=== PATIENT | male | born 1970 | race Caucasian/White ===

== ENCOUNTER 2018-05-03 09:37 | Outpatient (CLI) | payer BC | END 2018-05-03 09:38 | disposition home or self-care (01) | LOC: BICRAD 09:37 | PROVIDERS: ATTEND Family Medicine | DX: S93.401A Sprain of unspecified ligament of right ankle, initial encounter (principal); S92.351A Displaced fracture of fifth metatarsal bone, right foot, initial encounter for closed fracture ==

== ENCOUNTER 2019-06-07 10:20 | Outpatient (CLI) | payer BC | END 2019-06-07 10:21 | disposition home or self-care (01) | LOC: LABBT 10:20 | PROVIDERS: ATTEND Orthopaedic Surgery | DX: Z01.818 Encounter for other preprocedural examination (principal); M77.12 Lateral epicondylitis, left elbow | CPT/HCPCS: 93005; 93010 ==

== ENCOUNTER 2019-06-13 06:31 | Day surgery (SDC) | payer BC ==
[2019-06-07 15:50] VITALS: BMI 27.3
[2019-06-13] MEDS ORDERED: ceFAZolin Sodium (SDC) 2 GM/100 ML BAG ONE (07:19)
[2019-06-13] MEDS ORDERED: Fentanyl 100 MCG/2 ML VIAL ONE (08:24)
[2019-06-13] MEDS ORDERED: Bupivacaine HCl 0.5%/Epinephrine 1:200,000/PF 30 ml Vial ONE (08:54)
[2019-06-13] MEDS ORDERED: Ondansetron PF 4 MG/2 ML Vial ONE (12:09)
[2019-06-13] MEDS ORDERED: PROPOFOL 200 MG/20 ML VIAL ONE (12:09)
[2019-06-13] MEDS ORDERED: Lidocaine 1% PF 5 ML VIAL ONE (12:09)
--- NOTE | 2019-06-13 13:53 | OP ---
DATE OF PROCEDURE: 06/13/2019 PREOPERATIVE DIAGNOSIS: Left lateral epicondylitis. POSTOPERATIVE DIAGNOSIS: Left lateral epicondylitis. PROCEDURE PERFORMED: Left lateral epicondylectomy ANESTHESIA: General. BLOOD LOSS: Minimal. SPECIMENS: None. DRAINS: None. COMPLICATIONS: None. TOURNIQUET TIME: 13 minutes. DESCRIPTION OF PROCEDURE: The patient was taken to the operating room, where general anesthesia was induced. Left arm was prepped and draped in usual sterile fashion. He received Ancef preoperatively. I made an incision in line with the common extensor mechanism. Dissection was carried through subcutaneous tissue. Hemostasis was obtained. I elevated the common extensor origin off the lateral condyle, performed a partial lateral epicondylectomy, debrided the underside of the tendon. Irrigation was performed. Hemostasis was obtained. 2-0 Vicryl. Skin was closed with Prolene, and sterile dressing was applied. Job ID: [id number]
== END 2019-06-13 11:34 | disposition home or self-care (01) ==
LOC: SDC 06:31
PROVIDERS: ATTEND Orthopaedic Surgery
PROC: 0LQ40ZZ Repair Left Upper Arm Tendon, Open Approach (ICD-10-PCS; principal; 2019-06-13)
PROC: 0PBG0ZZ Excision of Left Humeral Shaft, Open Approach (ICD-10-PCS; principal; 2019-06-13)
DX: M77.12 Lateral epicondylitis, left elbow (principal); I10 Essential (primary) hypertension; F32.9 Major depressive disorder, single episode, unspecified; E78.00 Pure hypercholesterolemia, unspecified; Z79.899 Other long term (current) drug therapy
CPT/HCPCS: J0670; J0690; J3010

== ENCOUNTER 2019-12-18 08:58 | Outpatient (CLI) | payer BC ==
--- NOTE | 2019-12-18 09:17 | RAD ---
XR Hip Lt 2-3 View INDICATION: Osteoarthritis COMPARISON: None FINDINGS: Bones: No acute osseous abnormality. Bone mineralization appears within normal limits. Hip joint: Radiographically normal. SI joints and symphysis pubis: Radiographically normal. Intrapelvic contents: Visualized bowel gas pattern is within normal limits. Surrounding soft tissues: Radiographically normal. IMPRESSION: 1. No acute osseous abnormality.
== END 2019-12-18 08:59 | disposition home or self-care (01) ==
LOC: BICRAD 08:58
PROVIDERS: ATTEND Family Medicine
DX: M19.90 Unspecified osteoarthritis, unspecified site (principal)

== ENCOUNTER 2020-01-14 14:10 | Outpatient (CLI) | payer BC ==
--- NOTE | 2020-01-14 14:36 | RAD ---
Lumbar spine 4 views flexion and extension HISTORY: Low back pain. Left leg radiculopathy. FINDINGS: There are 5 lumbar type vertebrae. Pedicles are intact. Vertebral body heights and alignmen t are maintained. Images were obtained weightbearing. No abnormal translational motion upon flexion or extension. Mild osteophytosis throughout the lower vertebral bodies and facets. IMPRESSION: Very mild osseous degenerative changes. No acute osseous abnormalities are demonstrated.
--- NOTE | 2020-01-14 15:52 | MRI ---
MRI lumbar spine noncontrast HISTORY: Low back pain with left leg radiculopathy. FINDINGS: The conus medullaris has normal appearance. Vertebral body heights and alignment are mainta ined. Very mild discogenic endplate changes within the bone marrow at each level. T12-L1, L1-2, L2-3: Central canal and neural foramina are patent. L3-4: Degenerative changes of each facet. Mild disc bulge more pronounced bilaterally and posteriorly . Central canal is patent. There is moderate stenosis of each neural foramen. L4-5: Very mild disc bulge. Prominent hypertrophy of the facets. Thecal sac is patent. Moderate steno sis of each neural foramen. L5-S1: Posterior disc protrusion into the anterior epidural fat without significant compression of th e thecal sac or nerve root. Far left lateral disc bulge and osteophytosis result in moderate stenosis of the left neural foramen. Right neural foramen is patent. IMPRESSION: Mild to moderate degenerative changes throughout the lumbar spine as detailed above, incl uding multilevel moderate left foraminal stenoses. No focal disc herniation or nerve root compression evident.
== END 2020-01-14 14:11 | disposition home or self-care (01) ==
LOC: BICMRI 14:10
PROVIDERS: ATTEND Nurse Practitioner Family
DX: M51.16 Intervertebral disc disorders with radiculopathy, lumbar region (principal); M96.1 Postlaminectomy syndrome, not elsewhere classified; M47.816 Spondylosis without myelopathy or radiculopathy, lumbar region; M48.061 Spinal stenosis, lumbar region without neurogenic claudication; M48.07 Spinal stenosis, lumbosacral region
CPT/HCPCS: 72110; 72148

== ENCOUNTER 2020-04-24 09:21 | Outpatient (CLI) | payer BC ==
--- NOTE | 2020-04-24 09:37 | RAD ---
EXAM: Two views chest PROVIDED CLINICAL HISTORY: Acute bronchitis. Long-standing cough. COMPARISON: None FINDINGS: Cardiac silhouette and pulmonary vasculature are within normal limits. The lungs are clear. The osse ous structures have a normal appearance. IMPRESSION: No acute cardiopulmonary process.
== END 2020-04-24 09:22 | disposition home or self-care (01) ==
LOC: BICRAD 09:21
PROVIDERS: ATTEND Family Medicine
DX: J20.9 Acute bronchitis, unspecified (principal)
CPT/HCPCS: 36415; 71046; 80053; 85025

== ENCOUNTER 2020-06-17 14:24 | Outpatient (CLI) | payer BC ==
[~2020-06-17 14:24] MED LIST: Magnevist 469MG/ML 20 ML VIAL ONE
--- NOTE | 2020-06-17 15:43 | MRI ---
MR the brain with and without contrast INDICATION: History of vascular headache and cough Contrast: 16 cc of MultiHance COMPARISON: None FINDINGS: No area of restricted diffusion is grossly evident to suggest presence of acute ischemia. There is as ymmetric prominence of the left lateral ventricle which can be congenital variant. Remaining right lateral ventricle, third ventricle and fourth ventricle appear within normal limits. Appropriate flow voids are seen within the major intracranial vessels. The septum pellucidum and third ventricle are midline. No definite signal abnormality or region of abnormal enhancement is seen within the brai n parenchyma. There is prominent mucosal thickening within the frontal sinus, ethmoid air cells, sphenoid sinus and maxillary sinuses. There is air-fluid level within the left maxillary sinus. Masto id air cells appear within normal limits. Extracranial soft tissues appear within normal limits. IMPRESSION: 1. No acute intracranial abnormality. 2. Prominent paranasal sinus disease with acute left maxillary sinusitis.
== END 2020-06-17 14:25 | disposition home or self-care (01) ==
LOC: BICMRI 14:24
PROVIDERS: ATTEND Family Medicine
DX: G44.1 Vascular headache, not elsewhere classified (principal); J01.00 Acute maxillary sinusitis, unspecified; J32.4 Chronic pansinusitis
CPT/HCPCS: 70553; A9579

== ENCOUNTER 2020-08-26 08:56 | Outpatient (CLI) | payer BC ==
--- NOTE | 2020-08-26 09:56 | RAD ---
PA AND LATERAL VIEWS CHEST: Date: 08/26/2020 COMPARISON: 07/13/2020. FINDINGS/IMPRESSION: The heart size is normal. The lungs are well expanded without lobar consolidation, pneumothoraces, or pleural effusions. There is a questionable mild infiltrate in the left lower lung. The possibility o f pneumonia cannot be excluded. POS: AH
== END 2020-08-26 08:57 | disposition home or self-care (01) ==
LOC: BICRAD 08:56
PROVIDERS: ATTEND Family Medicine
DX: R05 Cough (principal)
CPT/HCPCS: 36415; 71046; 80053; 85025; 85652; 86140

== ENCOUNTER 2021-07-27 08:47 | Outpatient (CLI) | payer BC | END 2021-07-27 08:48 | disposition home or self-care (01) | LOC: BICRAD 08:47 | PROVIDERS: ATTEND Specialist | DX: M54.2 Cervicalgia (principal); M47.812 Spondylosis without myelopathy or radiculopathy, cervical region | CPT/HCPCS: 72050 ==

== ENCOUNTER 2022-05-31 07:55 | Outpatient (CLI) | payer BC | END 2022-05-31 07:56 | disposition home or self-care (01) | LOC: SCSMRI 07:55 | PROVIDERS: ATTEND Orthopaedic Surgery | DX: M75.21 Bicipital tendinitis, right shoulder (principal); S46.211A Strain of muscle, fascia and tendon of other parts of biceps, right arm, initial encounter; M75.111 Incomplete rotator cuff tear or rupture of right shoulder, not specified as traumatic ==

== ENCOUNTER 2022-06-14 09:19 | Outpatient (CLI) | payer BC ==
[2022-06-14 10:24] LABS: #Eosinphils 0.2 10x3/uL (0.0-0.5); #Monocytes 0.5 10x3/uL (0.0-1.1); #Neutrophils 3.3 10x3/uL (1.5-8.4); %Basophils 0.8 % (0.0-2.0); %Eosinophils 4.1 % (0.0-6.0); %Lymphocytes 22.1 % (18.0-47.0); %Monocytes 8.7 % (0.0-10.0); %Neutrophils 64.1 % (40.0-75.0); Hemoglobin 14.5 g/dL (13.5-17.5); Mean Corpuscular HGB CONC 33.5 g/dL (32.0-36.0); Mean Corpuscular Hemoglobin 28.7 pg (27.0-33.0); Mean Corpuscular Volume 85.6 fl (81.2-95.1); Mean Platelet Volume 9.1 fl (7.4-10.4); Platelet Count 230 10x3/uL (150-450); RBC Distribution Width 13.1 % (11.5-14.5); Red Blood Cell (RBC) Count 5.06 10x6/uL (4.32-5.72); White Blood Cell (WBC) Count 5.2 10x3/uL (3.5-10.5)
[2022-06-14 10:52] LABS: Anion Gap 14 mmol/L (10-20); BUN (Urea Nitrogen) 18 mg/dL (8.4-25.7); Calc. Creatinine Clearance 0 mL/min (70-130); Calcium 9.5 mg/dL (7.8-10.44); Carbon Dioxide 25 mmol/L (22-29); Chloride 103 mmol/L (98-107); Estimated GFR 71; Glucose 107 mg/dL (70-105); Potassium 4.3 mmol/L (3.5-5.1); Sodium 138 mmol/L (136-145)
== END 2022-06-14 09:20 | disposition home or self-care (01) ==
LOC: LABBT 09:19
PROVIDERS: ATTEND Orthopaedic Surgery
DX: Z01.818 Encounter for other preprocedural examination (principal); M75.101 Unspecified rotator cuff tear or rupture of right shoulder, not specified as traumatic; M75.21 Bicipital tendinitis, right shoulder; Z20.822 Contact with and (suspected) exposure to COVID-19
CPT/HCPCS: 71046; 80048; 85025; 87811; 93005; 93010

== ENCOUNTER 2022-06-17 08:42 | Day surgery (SDC) | payer BC ==
[2022-06-15 14:03] VITALS: BMI 28.1
[2022-06-17] MEDS ORDERED: Midazolam HCl 2 mg/2 ml Vial ONE (10:56)
[2022-06-17] MEDS ORDERED: Fentanyl 100 MCG/2 ML VIAL ONE (10:56)
[2022-06-17] MEDS ORDERED: Bupivacaine/Epinephrine 0.25% 30 ML VIAL ONE (11:58)
[2022-06-17] MEDS ORDERED: HYDROcodone/Acetaminophen 5/325 mg Tablet PO PRN ×2 (12:00)
[2022-06-17] MEDS ORDERED: Zolpidem Tartrate 5 MG TAB PO PRN (12:00)
[2022-06-17] MEDS ORDERED: traMADol HCl 50 MG TAB PO PRN ×2 (12:00)
[2022-06-17] MEDS ORDERED: Ondansetron PF 4 MG/2 ML Vial IVP PRN (12:00)
[2022-06-17] MEDS ORDERED: Ropivacaine 0.2% 550 ML 550 ML NERVE BLCK SCH (12:00)
[2022-06-17] MEDS ORDERED: Promethazine HCl 25 MG/ML VIAL IM PRN (12:00)
[2022-06-17] MEDS ORDERED: cefOXitin 2 GM VIAL ONE (12:06)
[2022-06-17] MEDS ORDERED: CEFAZOLIN 2 GM VIAL ONE (12:06)
[2022-06-17] MEDS ORDERED: Sodium Chloride 0.9% 100 ML ONE (12:06)
[2022-06-17] MEDS ORDERED: Glycopyrrolate 0.2 MG/ML 5 ML SYRINGE ONE (12:24)
[2022-06-17] MEDS ORDERED: Bupivacaine HCl 0.5%/Epinephrine 1:200,000/PF 30 ml Vial ONE (12:24)
[2022-06-17] MEDS ORDERED: Lidocaine 1% PF 5 ML VIAL ONE (12:24)
[2022-06-17] MEDS ORDERED: PROPOFOL 200 MG/20 ML VIAL ONE (12:24)
[2022-06-17] MEDS ORDERED: Ondansetron PF 4 MG/2 ML Vial ONE (12:24)
[2022-06-17] MEDS ORDERED: Dexamethasone 20 MG/5 ML VIAL ONE (12:24)
[2022-06-17] MEDS ORDERED: Rocuronium Bromide 10 MG/ML (10ML VIAL) ONE (12:24)
== END 2022-06-17 16:29 | disposition home or self-care (01) ==
LOC: SDC 08:42
PROVIDERS: ATTEND Orthopaedic Surgery
PROC: 3E0T3BZ Introduction of Anesthetic Agent into Peripheral Nerves and Plexi, Percutaneous Approach (ICD-10-PCS; principal; 2022-06-17)
PROC: 0LQ14ZZ Repair Right Shoulder Tendon, Percutaneous Endoscopic Approach (ICD-10-PCS; 2022-06-17)
PROC: 0RNJ4ZZ Release Right Shoulder Joint, Percutaneous Endoscopic Approach (ICD-10-PCS; 2022-06-17)
PROC: 0LS30ZZ Reposition Right Upper Arm Tendon, Open Approach (ICD-10-PCS; 2022-06-17)
DX: M75.101 Unspecified rotator cuff tear or rupture of right shoulder, not specified as traumatic (principal); M75.21 Bicipital tendinitis, right shoulder; M19.011 Primary osteoarthritis, right shoulder; M25.811 Other specified joint disorders, right shoulder; I10 Essential (primary) hypertension; E78.00 Pure hypercholesterolemia, unspecified; Z79.899 Other long term (current) drug therapy; Z88.6 Allergy status to analgesic agent
CPT/HCPCS: A4306; C1713; J0690; J0694; J2250; J2795; J3010; J3490

== ENCOUNTER 2024-11-06 08:19 | Day surgery (SDC) | payer BC ==
[2024-11-01 15:06] VITALS: BMI 28.3
[2024-11-06] MEDS ORDERED: CEFAZOLIN 2 GM VIAL ONE (12:07)
[2024-11-06] MEDS ORDERED: fentaNYL PF 100 MCG/2 ML SYRINGE ONE ×2 (12:11→14:05)
[2024-11-06] MEDS ORDERED: PROPOFOL 0 ML ONE (12:11)
[2024-11-06] MEDS ORDERED: PHENYLEPHRINE-NS 100 MCG/ML 10 ML SYRINGE ONE (12:28)
[2024-11-06] MEDS ORDERED: Bupivacaine PF 0.5% 30 ML VIAL ONE (12:36)
[2024-11-06] MEDS ORDERED: Dexamethasone 20 MG/5 ML VIAL ONE (12:39)
[2024-11-06] MEDS ORDERED: Ondansetron PF 4 MG/2 ML Vial ONE (12:39)
[2024-11-06] MEDS ORDERED: Glycopyrrolate 0.2 MG/ML 5 ML SYRINGE ONE (12:50)
[2024-11-06] MEDS ORDERED: PROPOFOL 20 ML ONE ×2 (14:04→14:05)
[2024-11-06] MEDS ORDERED: Rocuronium Bromide 10 MG/ML (10ML VIAL) ONE (14:07)
[2024-11-06] MEDS ORDERED: fentaNYL 50 mcg/mL 1 mL Vial ONE (14:15)
[2024-11-06] MEDS ORDERED: HYDROcodone/Acetaminophen 5/325 mg Tablet ONE (14:36)
== END 2024-11-06 15:35 | disposition home or self-care (01) ==
LOC: SDC 08:19
PROVIDERS: ATTEND Orthopaedic Surgery
PROC: 0LN50ZZ Release Right Lower Arm and Wrist Tendon, Open Approach (ICD-10-PCS; principal; 2024-11-06)
DX: M77.11 Lateral epicondylitis, right elbow (principal); I10 Essential (primary) hypertension; E78.00 Pure hypercholesterolemia, unspecified; Z88.8 Allergy status to other drugs, medicaments and biological substances; Z91.048 Other nonmedicinal substance allergy status; Z79.899 Other long term (current) drug therapy
CPT/HCPCS: A6223; J0665; J1100; J2405; J2704; J3010